=== PATIENT | female | born 1965 ===

== ENCOUNTER 2019-01-06 17:37 | Inpatient (IN) ==
[2019-01-06 19:08] LABS: Basophils % 0.2 % (0.0-0.8); Eosinophils # 0.1 10*3/uL (0.0-0.87); Eosinophils % 0.5 % (0.00-10.9); Hematocrit 37.6 VOL% (35.7-47.0); Hemoglobin 12.5 GM/DL (12.0-16.0); Immature Granulocytes % 0.8 %; Immature Granulocytes Absolute 0.13 #; Lymphocytes # 1.2 10*3/uL (1.4-4.0); Lymphocytes % 7.2 % (21.3-54.2); Mean Corpuscular HGB Conc 33.2 GM/DL (32-36); Mean Corpuscular Volume 88.5 FL (87-102); Mean Platelet Volume 12.5 FL (9.6-12.0); Monocytes % 8.4 % (1.7-12.7); Neutrophils % 82.9 % (38.7-73.9); Platelet Count 195 T/CUMM (130-400); Red Blood Count 4.25 MC/CUMM (3.8-5.5); Red Cell Distribution Width 11.9 % (9.3-17.3); White Blood Count 16.5 T/CUMM (4-12)
[2019-01-06 19:29] LABS: Albumin 2.6 G/DL (3.4-5.0); Bilirubin,Total 1.1 MG/DL (0.2-1.0); Total Protein 7.5 G/DL (6.4-8.3)
[2019-01-06 19:39] LABS: INR 0.9
[2019-01-06] MEDS ORDERED: ONDANSETRON 4 MG/2 ML VIAL IV PRN (23:53)
[2019-01-06] MEDS ORDERED: ZALEPLON 5 MG CAPSULE PO PRN (23:53)
[2019-01-06] MEDS ORDERED: ACETAMINOPHEN 325 MG TABLET PO PRN (23:53)
[2019-01-06] MEDS ORDERED: DEXTROSE 50% 25 GM/50 ML VIAL IV PRN (23:53)
[2019-01-06] MEDS ORDERED: GLUCAGON 1 MG VIAL IM PRN (23:53)
[2019-01-06] MEDS ORDERED: DOCUSATE SODIUM 100 MG CAPSULE PO PRN (23:53)
[2019-01-07] MEDS: GABAPENTIN 100 MG CAPSULE PO SCH ×2 (00:24→21:08)
[2019-01-07] MEDS: CARVEDILOL 12.5 MG TABLET PO SCH ×3 (00:24→16:26)
[2019-01-07] MEDS: SODIUM CHLORIDE 0.9% 1,000 ML IV SCH ×3 (00:26→23:38)
[2019-01-07] MEDS: CIPROFLOXACIN INJ 400 MG in PREMIX 1 EACH IV SCH ×2 (00:39→13:43)
[2019-01-07] MEDS: HYDROmorphone 2 MG/1 ML VIAL IV PRN ×2 (01:15→10:33)
[2019-01-07] MEDS: INSULIN LISPRO 100 UNIT/ML SUBCUT SCH ×8 (01:29→21:09)
[2019-01-07] MEDS: INSULIN GLARGINE 100 UNIT/ML SUBCUT SCH ×3 (01:30→21:09)
[2019-01-07] MEDS: metroNIDAZOLE INJ 500 MG in PREMIX 1 EACH IV SCH ×3 (02:23→16:30)
[2019-01-07 05:21] LABS: Basophils % 0.3 % (0.0-0.8); Eosinophils # 0.2 10*3/uL (0.0-0.87); Eosinophils % 1.1 % (0.00-10.9); Hematocrit 36.3 VOL% (35.7-47.0); Immature Granulocytes % 1.3 %; Lymphocytes # 1.8 10*3/uL (1.4-4.0); Lymphocytes % 12.1 % (21.3-54.2); Mean Corpuscular HGB Conc 33.1 GM/DL (32-36); Monocytes % 9.1 % (1.7-12.7); Neutrophils % 76.1 % (38.7-73.9); Platelet Count 184 T/CUMM (130-400); Red Blood Count 4.08 MC/CUMM (3.8-5.5); Red Cell Distribution Width 11.7 % (9.3-17.3); White Blood Count 14.9 T/CUMM (4-12)
[2019-01-07 05:43] LABS: Calcium 8.9 MG/DL (8.5-10.1); Osmolality,Calculated 284.2 MOS/KG (273-304)
[2019-01-07] MEDS ORDERED: POTASSIUM CHLORIDE 20 MEQ TABLET PO PRN (07:20)
[2019-01-07] MEDS: FENOFIBRATE 145 MG TABLET PO SCH (08:29)
[2019-01-07] MEDS: LISINOPRIL 5 MG TABLET PO SCH (09:18)
[2019-01-07] MEDS ORDERED: BUPIVACAINE MPF 0.25% 30 ML VIAL ONE (12:04)
[2019-01-07] MEDS ORDERED: PROPOFOL 200 MG/20 ML VIAL IV ONE (13:09)
[2019-01-07] MEDS ORDERED: SEVOFLURANE 1 UNIT/15 MINUTE INH ONE (13:09)
[2019-01-07] MEDS ORDERED: PHENYLEPHRINE 1 MG/10 ML SYRINGE IV ONE (13:10)
[2019-01-07] MEDS ORDERED: MIDAZOLAM 2 MG/2 ML VIAL ONE (13:10)
[2019-01-07] MEDS ORDERED: ONDANSETRON 4 MG/2 ML VIAL ONE ×2 (13:10→13:31)
[2019-01-07] MEDS ORDERED: fentaNYL 100 MCG/2 ML VIAL ONE (13:10)
[2019-01-07] MEDS ORDERED: MEPERIDINE 25 MG/1 ML VIAL ONE (13:31)
[2019-01-07] MEDS ORDERED: ONDANSETRON 4 MG/2 ML VIAL IV PRN (13:41)
[2019-01-07] MEDS ORDERED: MEPERIDINE 25 MG/1 ML VIAL IV PRN (13:41)
[2019-01-07] MEDS: AMPICILLIN/SULBACTAM 1,500 MG in SODIUM CHLORIDE 0.9% 100 ML IV SCH ×2 (18:35→23:39)
[2019-01-08] MEDS: SODIUM CHLORIDE 0.9% 1,000 ML IV SCH ×2 (02:33→17:00)
[2019-01-08 06:02] LABS: Basophils % 0.3 % (0.0-0.8); Eosinophils # 0.5 10*3/uL (0.0-0.87); Hematocrit 32.1 VOL% (35.7-47.0); Hemoglobin 10.2 GM/DL (12.0-16.0); Immature Granulocytes % 0.6 %; Immature Granulocytes Absolute 0.07 #; Lymphocytes # 1.6 10*3/uL (1.4-4.0); Lymphocytes % 13.5 % (21.3-54.2); Mean Corpuscular HGB Conc 31.8 GM/DL (32-36); Mean Corpuscular Volume 90.9 FL (87-102); Mean Platelet Volume 12.5 FL (9.6-12.0); Monocytes % 7.2 % (1.7-12.7); Neutrophils % 74.4 % (38.7-73.9); Platelet Count 168 T/CUMM (130-400); Red Blood Count 3.53 MC/CUMM (3.8-5.5); Red Cell Distribution Width 11.9 % (9.3-17.3); White Blood Count 11.9 T/CUMM (4-12)
[2019-01-08] MEDS: AMPICILLIN/SULBACTAM 1,500 MG in SODIUM CHLORIDE 0.9% 100 ML IV SCH ×4 (06:04→23:40)
[2019-01-08 06:32] LABS: Calcium 8.4 MG/DL (8.5-10.1); Osmolality,Calculated 288.1 MOS/KG (273-304)
[2019-01-08] MEDS: INSULIN LISPRO 100 UNIT/ML SUBCUT SCH ×7 (08:30→21:41)
[2019-01-08] MEDS ORDERED: ERGOCALCIFEROL 50,000 UNIT CAPSULE PO SCH (09:00)
[2019-01-08] MEDS: SODIUM HYPOCHLORITE 0.25% IRRIG 473 ML BOTTLE TOP SCH (09:19)
[2019-01-08] MEDS: HYDROmorphone 2 MG/1 ML VIAL IV PRN (09:21)
[2019-01-08] MEDS: FENOFIBRATE 145 MG TABLET PO SCH (09:45)
[2019-01-08] MEDS: LISINOPRIL 5 MG TABLET PO SCH (09:57)
[2019-01-08] MEDS: CARVEDILOL 12.5 MG TABLET PO SCH ×2 (09:57→16:47)
[2019-01-08] MEDS: INSULIN GLARGINE 100 UNIT/ML SUBCUT SCH ×2 (10:00→21:39)
[2019-01-08] MEDS: GABAPENTIN 100 MG CAPSULE PO SCH (21:39)
[2019-01-09] MEDS: AMPICILLIN/SULBACTAM 1,500 MG in SODIUM CHLORIDE 0.9% 100 ML IV SCH ×3 (06:11→18:16)
[2019-01-09] MEDS: SODIUM CHLORIDE 0.9% 1,000 ML IV SCH ×2 (08:04→18:33)
[2019-01-09] MEDS: INSULIN LISPRO 100 UNIT/ML SUBCUT SCH ×7 (08:30→21:26)
[2019-01-09] MEDS: CARVEDILOL 12.5 MG TABLET PO SCH ×2 (09:00→18:16)
[2019-01-09] MEDS: FENOFIBRATE 145 MG TABLET PO SCH (09:39)
[2019-01-09] MEDS: ASPIRIN CHEW 81 MG TABLET PO SCH (09:39)
[2019-01-09] MEDS: SODIUM HYPOCHLORITE 0.25% IRRIG 473 ML BOTTLE TOP SCH (09:40)
[2019-01-09] MEDS: INSULIN GLARGINE 100 UNIT/ML SUBCUT SCH ×2 (09:41→21:25)
[2019-01-09] MEDS: LISINOPRIL 5 MG TABLET PO SCH (09:41)
[2019-01-09] MEDS: GABAPENTIN 100 MG CAPSULE PO SCH (21:21)
[2019-01-10] MEDS: AMPICILLIN/SULBACTAM 1,500 MG in SODIUM CHLORIDE 0.9% 100 ML IV SCH ×3 (00:12→12:00)
[2019-01-10 04:18] LABS: Basophils % 0.5 % (0.0-0.8); Eosinophils # 0.5 10*3/uL (0.0-0.87); Eosinophils % 6.4 % (0.00-10.9); Hematocrit 31.1 VOL% (35.7-47.0); Hemoglobin 9.9 GM/DL (12.0-16.0); Immature Granulocytes % 1.7 %; Immature Granulocytes Absolute 0.13 #; Lymphocytes # 1.8 10*3/uL (1.4-4.0); Mean Corpuscular HGB Conc 31.8 GM/DL (32-36); Mean Corpuscular Volume 91.2 FL (87-102); Mean Platelet Volume 12.4 FL (9.6-12.0); Monocytes % 9.9 % (1.7-12.7); Neutrophils % 57.5 % (38.7-73.9); Platelet Count 210 T/CUMM (130-400); Red Blood Count 3.41 MC/CUMM (3.8-5.5); Red Cell Distribution Width 11.9 % (9.3-17.3); White Blood Count 7.6 T/CUMM (4-12)
[2019-01-10 04:38] LABS: Calcium 7.7 MG/DL (8.5-10.1); Osmolality,Calculated 290.8 MOS/KG (273-304)
[2019-01-10] MEDS: INSULIN LISPRO 100 UNIT/ML SUBCUT SCH ×4 (07:41→12:22)
[2019-01-10] MEDS: SODIUM CHLORIDE 0.9% 1,000 ML IV SCH (08:30)
[2019-01-10] MEDS: ASPIRIN CHEW 81 MG TABLET PO SCH (09:08)
[2019-01-10] MEDS: CARVEDILOL 12.5 MG TABLET PO SCH (09:08)
[2019-01-10] MEDS: LISINOPRIL 5 MG TABLET PO SCH (09:08)
[2019-01-10] MEDS: FENOFIBRATE 145 MG TABLET PO SCH (09:08)
[2019-01-10] MEDS: SODIUM HYPOCHLORITE 0.25% IRRIG 473 ML BOTTLE TOP SCH (09:11)
[2019-01-10] MEDS: INSULIN GLARGINE 100 UNIT/ML SUBCUT SCH (09:13)
[2019-01-10 11:43] VITALS: BP 123/79
== END 2019-01-10 13:35 | disposition home or self-care (01) | DRG 988 ==
LOC: EDBD → EDUNIT# → N.ED 17:37 → SUATTDRO 19:32 → N.EDINP 19:32 → N.3E 23:51
PROVIDERS: ADMIT Internal Medicine; ATTEND Internal Medicine

== ENCOUNTER 2022-05-28 02:14 | Observation (INO) ==
[2022-05-28] MEDS ORDERED: hydrALAZINE 20 MG/1 ML VIAL IV PRN (04:35)
[2022-05-28] MEDS ORDERED: MORPHINE 2 MG/1 ML SYRINGE IV PRN (04:35)
[2022-05-28] MEDS ORDERED: ACETAMINOPHEN 325 MG TABLET PO PRN (04:35)
[2022-05-28] MEDS ORDERED: ONDANSETRON 4 MG/2 ML VIAL IV PRN (04:35)
[2022-05-28] MEDS ORDERED: LACTATED RINGERS 1,000 ML IV SCH (05:00)
[2022-05-28] MEDS ORDERED: ALBUTEROL/IPRATROPIUM 3 ML NEB RESP TX PRN (05:01)
[2022-05-28] MEDS: metroNIDAZOLE INJ 500 MG/100 ML PREMIX IV SCH ×2 (05:15→16:59)
[2022-05-28 05:39] LABS: Basophils % 0.3 % (0.0-0.8); Eosinophils # 0.3 10*3/uL (0.0-0.87); Eosinophils % 2.7 % (0.00-10.9); Hematocrit 35.6 VOL% (35.7-47.0); Hemoglobin 12.1 GM/DL (12.0-16.0); Immature Granulocytes % 0.5 %; Immature Granulocytes Absolute 0.05 #; Lymphocytes # 1.9 10*3/uL (1.4-4.0); Lymphocytes % 19.6 % (21.3-54.2); Mean Corpuscular Volume 86.4 FL (87-102); Mean Platelet Volume 11.9 FL (9.6-12.0); Monocytes # 0.8 10*3/uL (0.11-0.8); Monocytes % 7.9 % (1.7-12.7); Platelet Count 171 T/CUMM (130-400); Red Blood Count 4.12 MC/CUMM (3.8-5.5); Red Cell Distribution Width 12.7 % (9.3-17.3); White Blood Count 9.5 T/CUMM (4-12)
[2022-05-28 05:59] LABS: Albumin 2.6 G/DL (3.4-5.0); Bilirubin,Total 0.6 MG/DL (0.20-1.00); Calcium 8.4 MG/DL (8.5-10.1); Osmolality,Calculated 289.1 MOS/KG (273-304); Potassium 3.9 MMOL/L (3.5-5.1); Total Protein 6.8 G/DL (6.4-8.2)
[2022-05-28] MEDS: INSULIN LISPRO 100 UNIT/ML SUBCUT SCH ×4 (08:23→21:10)
[2022-05-28] MEDS: PANTOPRAZOLE 40 MG TABLET PO SCH (08:24)
[2022-05-28] MEDS: lisinopriL 20 MG TABLET PO SCH (08:24)
[2022-05-28] MEDS: ASPIRIN CHEW 81 MG TABLET PO SCH (08:24)
[2022-05-28] MEDS: DULoxetine 30 MG CAPSULE PO SCH (08:24)
[2022-05-28] MEDS: carvediloL 12.5 MG TABLET PO SCH ×2 (09:47→21:11)
[2022-05-28 12:39] LABS: Bilirubin,Urine Negative (Negative); Blood, Urine Negative (Negative); Glucose,Urine (UA) 150 mg/dL (Negative); Ketones,Urine 5 mg/dL (Negative); Mucus,Urine Many /LPF (Occasional); Nitrite,Urine Negative (Negative); Protein,Urine >=500 mg/dL (Negative); RBC,Urine 2 /HPF (0-4); Squamous Epithelial Cell,Urine Few /HPF (0-10); Urine Appearance CLOUDY (Clear); Urine Color Amber (Yellow); Urine Specific Gravity 1.034 (1.001-1.035); Urine Urobilinogen < 2.0 eU/dL (<2.0)
[2022-05-28] MEDS ORDERED: ATORVASTATIN 40 MG TABLET PO SCH (21:00)
[2022-05-28] MEDS ORDERED: cefTRIAXone 1,000 MG in SODIUM CHLORIDE 0.9% 100 ML IV SCH (21:00)
[2022-05-29] MEDS: metroNIDAZOLE INJ 500 MG/100 ML PREMIX IV SCH ×2 (00:13→08:35)
[2022-05-29 05:48] LABS: Basophils % 0.1 % (0.0-0.8); Eosinophils % 0.4 % (0.00-10.9); Hematocrit 33.5 VOL% (35.7-47.0); Hemoglobin 11.2 GM/DL (12.0-16.0); Immature Granulocytes % 0.4 %; Immature Granulocytes Absolute 0.03 #; Lymphocytes # 1.4 10*3/uL (1.4-4.0); Lymphocytes % 18.5 % (21.3-54.2); Mean Corpuscular HGB Conc 33.4 GM/DL (32-36); Mean Corpuscular Volume 87.7 FL (87-102); Mean Platelet Volume 13.1 FL (9.6-12.0); Monocytes # 0.6 10*3/uL (0.11-0.8); Monocytes % 7.2 % (1.7-12.7); Neutrophils % 73.4 % (38.7-73.9); Platelet Count 158 T/CUMM (130-400); Red Blood Count 3.82 MC/CUMM (3.8-5.5); Red Cell Distribution Width 13.1 % (9.3-17.3); White Blood Count 7.6 T/CUMM (4-12)
[2022-05-29 06:13] LABS: Platelet Estimate Adequate
[2022-05-29 06:16] LABS: Calcium 7.9 MG/DL (8.5-10.1); Osmolality,Calculated 294.3 MOS/KG (273-304); Potassium 3.9 MMOL/L (3.5-5.1)
[2022-05-29] MEDS: lisinopriL 20 MG TABLET PO SCH (08:35)
[2022-05-29] MEDS: DULoxetine 30 MG CAPSULE PO SCH (08:35)
[2022-05-29] MEDS: PANTOPRAZOLE 40 MG TABLET PO SCH (08:35)
[2022-05-29] MEDS: carvediloL 12.5 MG TABLET PO SCH (08:35)
[2022-05-29] MEDS: ASPIRIN CHEW 81 MG TABLET PO SCH (08:35)
[2022-05-29] MEDS: INSULIN LISPRO 100 UNIT/ML SUBCUT SCH ×2 (08:42→11:44)
[2022-05-29 11:38] VITALS: BP 131/70
[2022-05-30] MEDS ORDERED: LEVOFLOXACIN 500 MG TABLET PO SCH (09:00)
== END 2022-05-29 13:24 | disposition home or self-care (01) ==
LOC: N.5E 03:52 → INTOOBSV 03:52 → SUATTDRO 03:52
PROVIDERS: ADMIT Internal Medicine; ATTEND Internal Medicine